=== PATIENT | male | born 1960 | race Caucasian/White ===

== ENCOUNTER 2023-10-04 03:48 | Emergency (ER) | payer OTHER, SELFPAY ==
[2023-10-04 03:53] VITALS: BP 200/117
[2023-10-04 04:21] LABS: % Basophils 0.7 % (0-2); % Eosinophils 3.5 % (0-6); % Immature Granulocytes 0.6 % (0-0.5); % Lymphocytes 22.1 % (20.5-51.1); % Monocytes 10.3 % (1.7-9.3); % Neutrophils 62.8 % (42.2-75.2); Absolute Basophils 0.1 10^3/uL (0-0.2); Absolute Eosinophils 0.4 10^3/uL (0-0.7); Absolute Immature Granulocytes 0.1 10^3/uL (0-0.05); Absolute Lymphocytes 2.8 10^3/uL (1.2-3.4); Absolute Monocytes 1.3 10^3/uL (0.1-0.6); Absolute Neutrophils 7.9 10^3/uL (1.4-6.5); Hematocrit 45.5 % (39.0-52.0); Hemoglobin 16.7 g/dL (13.0-18.0); Mean Corp Hgb Conc. 36.7 g/dL (33.0-37.0); Mean Corpuscular Hgb 35.2 pg (27.0-31.0); Mean Corpuscular Volume 95.8 fL (80.0-94.0); Mean Platelet Volume 8.1 fL (7.4-10.4); Nucleated Red Blood Cells % 0 % (-); Platelet Count 396 10^3/uL (130-400); Red Blood Cell Count 4.75 10^6/uL (4.70-6.10); Red Cell Dist. Width 12.7 % (11.5-14.5); White Blood Cell Count 12.6 10^3/uL (4.8-10.8)
[2023-10-04 04:29] LABS: ALT (SGPT) 19 U/L (0-50); AST (SGOT) 27 U/L (17-59); Albumin 4.5 g/dl (3.5-5.0); Alkaline Phosphatase 98 U/L (38-126); Blood Urea Nitrogen 15 mg/dl (9-20); Calcium 9.9 mg/dl (8.4-10.2); Carbon Dioxide 29 mmol/L (22-30); Chloride 101 mmol/L (98-107); Glucose 119 mg/dl (70-99); Potassium 4.5 mmol/L (3.5-5.1); Sodium 139 mmol/L (135-145); Total Bilirubin 0.8 mg/dl (0.2-1.3); Total Protein 7.6 g/dl (6.3-8.2); eGFR > 60.00
[2023-10-04 04:40] LABS: Troponin I < 0.012 ng/ml
[2023-10-04 05:26] VITALS: BMI 24.2
[2023-10-04 05:30] VITALS: BP 159/81
[2023-10-04 05:32] VITALS: BP 159/81
[2023-10-04 06:00] VITALS: BP 173/116
--- NOTE | 2023-10-04 06:29 | ED.GENMED ---
History of Present Illness
General
Chief Complaint: Chest Pain
Source: patient
Exam Limitations: none
Time Seen by Provider: 10/04/23 05:35
Nursing documentation reviewed up to this point in time: agreed with
Travel History
Have you had any contact with someone who has COVID-19?: No
Do you have any symptoms of coronavirus? Fever > 100 degrees, chills, cough, shortness of breath, sore throat, loss of taste or smell, muscle aches, or headache?: No
History of Present Illness
History of Present Illness:
63-year-old male with no reported past medical history presents to the emergency room for evaluation of left-sided chest wall pain/rib pain. Patient reports he was working on a stepladder in the bathroom 2 days ago and fell to the left side and
struck his left ribs. He says he did not have any head trauma or any other injuries. He says that over the past 2 days since the fall he has had some soreness in the left ribs. Last night he says he rolled over in bed and woke up around 1 AM with
sharp pain in the left chest that was radiating towards the sternum. He called EMS to bring to the hospital for assessment. He was given aspirin and nitroglycerin from EMS with no change in his symptoms. He has not had any associated symptoms
such as shortness of breath, nausea, vomiting, diaphoresis. He does report the pain is slightly worse with breathing. He denies any abdominal pain. Denies any headache, neck pain, back pain. He denies any pain in his extremities. He denies any
known cardiac history and says that he takes no medications--denies being on any blood thinners.
Review of Systems
Review of Systems
All Other Systems: ROS reviewed and negative except as documented in HPI and ROS
Constitutional: Denies fever or chills
Respiratory: Denies cough or trouble breathing
Cardiac: Reports chest pain; Denies diaphoresis or palpitations
ABD/GI: Denies abdominal pain, nausea or vomiting
: Denies flank pain
Musculoskeletal: Denies neck pain or back pain
Neurological: Denies dizzy, headache, weakness or numbness
Phy Exam
Physical Exam
Physical Exam:
General: Awake, alert, oriented x3; no acute distress
Head: Normocephalic, atraumatic
Eyes: Conjunctiva normal, sclera anicteric
Throat: Airway intact, handling secretions
Neck: Trachea midline, no tenderness in cervical spine
Back: No signs of trauma to the back or flank and no tenderness in the thoracic or lumbar spine
Lungs: Clear to auscultation bilaterally, no wheezing, rales, rhonchi
Heart: Regular rate and rhythm, no murmurs, gallops, or rubs; mild tenderness along left anterior lateral ribs but no crepitus or ecchymosis noted
Abd: Soft, non distended, nontender
Neuro: Cranial nerves grossly intact, speech fluid
Skin: no rash
Extremities: Atraumatic, no edema in extremities, equal pulses in all extremities
Scores
Heart Failure Risk
Heart Failure Risk Score: Not Applicable
Heart Score for Chest Pain Patients
STEMI patient?: No
History: Slightly or Non-Suspicious
ECG: Normal
Age: </= 45 years
Risk Factors: No Risk Factors
Troponin: </= Normal Limit
Heart Score for Chest Pain Patients: 0
Heart Score Risk: 2.5% MACE over next 6 weeks
Withdrawal Assessment of Alcohol
Withdrawal Assessment Completed?: Not applicable
Course
Orders/Labs/Results
Orders:
Orders
10/04/23 03:49
Electrocardiogram (*1) Urgent
Reason for Study: Chest Pain
EKG- Treatment ONCE
10/04/23 04:03
Ribs, Left 3 View W/PA Chest CR [CR Ribs-left 3 Vw W/pa Chest] Urgent
Comment:
Reason For Exam: injury and pain
10/04/23 04:04
CMP [Comprehensive Metabolic Panel] Urgent
Complete Blood Count/With Diff Urgent
Troponin I Urgent
10/04/23 05:44
CT Chest W/o Iv Contrast Urgent
Comment:
Reason For Exam: left rib pain s/p fall off ladder
10/04/23 06:29
Ketorolac [Toradol] 15 mg IV NOW STA
10/04/23 07:12
Troponin I Urgent
Abnormal Lab Results
10/04/23
04:04
WBC 12.6 H 10^3/uL
(4.8-10.8)
MCV 95.8 H fL
(80.0-94.0)
MCH 35.2 H pg
(27.0-31.0)
Abs Immat Gran (auto) 0.1 H 10^3/uL
(0-0.05)
Absolute Neuts (auto) 7.9 H 10^3/uL
(1.4-6.5)
Absolute Monos (auto) 1.3 H 10^3/uL
(0.1-0.6)
Immature Gran % 0.6 H %
(0-0.5)
Monocytes % 10.3 H %
(1.7-9.3)
Glucose 119 H mg/dl
(70-99)
10/04/23 04:04
10/04/23 04:04
Vital Signs
Initial and Last Documented VS:
Initial Vital Signs
Temp Pulse Resp BP Pulse Ox
36.6 C 94 22 200/117 96
10/04/23 03:53 10/04/23 03:53 10/04/23 03:53 10/04/23 03:53 10/04/23 03:53
Last Documented Vital Signs
Temp Pulse Resp BP Pulse Ox
36.6 C 82 20 159/81 93
10/04/23 03:53 10/04/23 05:30 10/04/23 05:30 10/04/23 05:30 10/04/23 05:30
MDM/Problems Addressed
Differential Diagnosis Includes:
Rib fracture, costochondritis, bruised ribs, pneumothorax/hemothorax; much less likely acute coronary syndrome, PE or other emergent pathology based on full clinical picture
MDM/Problems Addressed:
63-year-old male presents for evaluation of left-sided chest wall pain since a fall 2 days ago�pain became somewhat more sharp overnight. Arrived hypertensive but blood pressure improved on my assessment. Vital signs otherwise within normal
limits. Physical exam as above. EKG shows no acute ischemia. He had IV placed in triage and labs were sent off including CBC which shows a marked leukocytosis to 12.6, CMP which showed no acute abnormalities. He had a troponin sent which was
negative x 1�will send a repeat although low clinical suspicion for acute coronary syndrome. He had an x-ray of the ribs/chest which was reviewed by me and shows no clear fracture, no pneumothorax or hemothorax. Given his degree of tenderness will
check CT to rule out occult rib fracture. Will treat pain with Toradol. Reassess after the above.
CT chest shows no clear rib fracture or other acute pathology. On clinical reassessment patient reports that his pain improved with Toradol. Vital signs reassuring. Repeat troponin negative. Suspect likely bruised ribs or costochondritis related
to his fall. I think he is stable for discharge at this point in time. Spoke to him about follow-up plan with his primary doctor for reassessment he will take NSAIDs as needed for pain. He feels comfortable with this plan. Spoke about return
precautions all questions answered.
Acute Exacerbation and/or Progression of Chronic Illness:
Acutely hypertensive improved without intervention continue to monitor but no additional antihypertensive treatment indicated at present
Acute Exacerbation and/or Progression of Chronic Illness: HTN
*Radiology
Radiology exam reviewed: preliminary read by ED provider (X-ray of the ribs reviewed by me no pneumothorax or hemothorax, no rib fractures) and radiology read reviewed
*Pulse Oximetry
Patient hypoxic: no
*EKG
Interpreted by ED Provider?: Yes
Heart Rate: 90
Rate: normal
Rhythm: sinus
[place]: normal axis
Interval: normal interval
QRS Pattern: normal QRS
Ischemia: no ischemia
*Critical Care Note
Total Time (30-74mins, 75-104mins- exclusive of procedures): Not Applicable
Data Reviewed
Source: patient and ambulance crew
ED Attending Note
-
Portions of this chart may have been created with voice recognition software.� Occasional wrong word or��sound alike� substitutions may have occurred due to the inherent limitations of voice recognition software.
Discharge Plan
Departure
Patient with high blood pressure during this ER visit?: Yes
Discharge Problem:
Left-sided chest wall pain
Instructions: Costochondritis (DC), Rib Fracture or Bruised Rib ED, Chest Pain PCP Follow Up
Prescriptions:
No Action
No Current Medications
0
Referrals:
NONE,* [Family Provider] -
Activity Restrictions/Additional Instructions:
Thank you for visiting the Emergency Department at [facility].
1. Please schedule a follow up appointment as directed. Call first thing tomorrow morning to make an appointment.
2. If indicated, please take your medications as instructed and indicated on discharge paperwork.
3. If any of your symptoms do not improve, or persist, or become more severe within 6-12 hours, please return to the emergency department for further care.
4. Please return to the emergency department if you develop a headache, neck pain/stiffness, fever greater than 100.4F, chest pain, shortness of breath, persistent nausea, vomiting, slurred speech, difficulty walking, numbness/tingling, weakness,
signs of infection or any other symptoms that are worrisome to you.
Please call [phone] if you have any questions.
Interventions
Interventions:
*Risk Screen - Suicide Last Done: 10/04/23 03:53
*General Assessment Last Done: 10/04/23 05:30
*Neglect/Abuse Screening Last Done: 10/04/23 05:30
*ED COVID-19 Vaccine History Last Done: 10/04/23 05:30
ED- Cardiac Assessment Last Done: 10/04/23 05:30
ED-Musculoskeletal Assessment Last Done: 10/04/23 05:30
ED- Neurological Assessment Last Done: 10/04/23 05:30
ED- Pulmonary Assessment Last Done: 10/04/23 05:30
[2023-10-04] MEDS: TORADOL 15 MG IV (07:12)
[2023-10-04 07:15] VITALS: BP 178/97
[2023-10-04 08:00] VITALS: BP 162/89
[2023-10-04 08:08] LABS: Troponin I < 0.012 ng/ml
== END 2023-10-04 08:44 | disposition home or self-care (01) ==
LOC: EMR 03:48
PROVIDERS: Emergency Medicine; EMERGENCY PHYSICIAN Emergency Medicine
DX: R07.89 Other chest pain (principal)
CPT/HCPCS: 99284; 96374; 71101; 71250; 80053; 84484; 85025; 93005

== ENCOUNTER 2024-10-16 12:14 | Emergency (ER) | payer SELFPAY ==
[2024-10-16 12:22] VITALS: BP 174/93
--- NOTE | 2024-10-16 13:11 | ED.GENMED ---
History of Present Illness
General
Chief Complaint: Male Genito-Urinary Symptoms
Source: patient
Exam Limitations: none
Time Seen by Provider: 10/16/24 12:56
Nursing documentation reviewed up to this point in time: agreed with
History of Present Illness
History of Present Illness:
64-year-old male right groin swelling with pain 6 days no fever no nausea vomiting dysuria frequency similar episode 20 years ago on the left treated with antibiotics, he is a drinker and a smoker, no chronic medical condition is not known to be
diabetic
Past History
Past History
ED Past Medical History: None
ED Past Surgical History: None
Social History
Alcohol: Daily
Drug: None
Employment: Not employed
Review of Systems
Review of Systems
All Other Systems: Not applicable
Constitutional: Denies fever or fatigue
Cardiac: Reports no symptoms
ABD/GI: Reports no symptoms; Denies abdominal pain
: Reports other (Swelling of the right testicle)
Phy Exam
Physical Exam
Physical Exam:
Physical Exam
General: no apparent distress, not acutely ill
Neck: No jaundice
Heart: s1/s2 regular rate and rhythm, no murmur. equal radial pulses.
Lungs: no acute respiratory distress. clear bilaterally
Abdomen: Soft nontender abdomen right groin golf ball sized tenderness in the right lower lateral portion of the scrotum
Neuro: alert and oriented. no focal neurological deficits
Skin: no rash
Psychiatric: well kept. interactive and cooperative
Extremities: no edema.
Course
Orders/Labs/Results
Orders:
Orders
10/16/24 13:07
Scrotum US [US Scrotum] Urgent
Comment:
Reason For Exam: mass
10/16/24 13:08
Ibuprofen [Motrin] 600 mg PO NOW STA
10/16/24 13:23
Complete Blood Count/With Diff Urgent
10/16/24 15:35
CT Abd/pelvis W Iv Cont Urgent
Comment:
Reason For Exam: scrotal mass
10/16/24 15:41
Beta HCG Quantitative Urgent
Is this a screen?: No
Comprehensive Metabolic Panel Urgent
LDH Urgent
Abnormal Lab Results
10/16/24 10/16/24
13:23 13:40
WBC 13.1 H 10^3/uL
(4.8-10.8)
RBC 4.49 L 10^6/uL
(4.70-6.10)
MCV 101.3 H fL
(80.0-94.0)
MCH 37.4 H pg
(27.0-31.0)
Plt Count 435 H 10^3/uL
(130-400)
Abs Immat Gran (auto) 0.1 H 10^3/uL
(0-0.05)
Absolute Neuts (auto) 7.9 H 10^3/uL
(1.4-6.5)
Absolute Monos (auto) 1.3 H 10^3/uL
(0.1-0.6)
Immature Gran % 0.6 H %
(0-0.5)
Monocytes % 9.9 H %
(1.7-9.3)
POC Glucose 105 H mg/dl
(70-99)
10/16/24 13:23
10/16/24 15:41
Vital Signs
Initial and Last Documented VS:
Initial Vital Signs
Temp Pulse Resp BP Pulse Ox
99 F 87 20 174/93 97
10/16/24 12:22 10/16/24 12:22 10/16/24 12:22 10/16/24 12:22 10/16/24 12:22
Last Documented Vital Signs
Temp Pulse Resp BP Pulse Ox
98.0 F 77 18 142/75 100
10/16/24 17:27 10/16/24 17:27 10/16/24 17:27 10/16/24 17:27 10/16/24 17:27
MDM/Problems Addressed
Differential Diagnosis Includes:
Scrotal abscess, scrotal malignancy, epididymitis orchitis doubt hernia by history and physical
MDM/Problems Addressed:
Groin swelling
*Critical Care Note
Total Time (30-74mins, 75-104mins- exclusive of procedures): Not Applicable
Update Note
Update Note:
Update ultrasound report reviewed, reviewed with on-call urology outpatient follow-up arranged in the meantime we will check tumor markers and CT scan patient updated
ED Attending Note
-
Portions of this chart may have been created with voice recognition software.� Occasional wrong word or��sound alike� substitutions may have occurred due to the inherent limitations of voice recognition software.
Discharge Plan
Departure
Patient Disposition: Home (Routine Discharge)
Date of Disposition: 10/16/24
Time of Disposition: 17:09
Patient with high blood pressure during this ER visit?: No
Condition: Good
Discharge Problem:
Mass, scrotum
Prescriptions:
New
ibuprofen 600 mg tablet
600 mg PO Q6H PRN (Reason: Pain) Qty: 30 0RF
Referrals:
Jose Elias Enriquez MD [Active] - Follow up in 5-7 days
NONE,* [Family Provider] -
Activity Restrictions/Additional Instructions:
Call Dr Enriquez's office tell them you were seen in the ER and the ER doctor talked to Dr Enriquez
Interventions
Interventions:
*Risk Screen - Suicide Last Done: 10/16/24 12:22
*General Assessment Last Done: 10/16/24 12:22
*Neglect/Abuse Screening Last Done: 10/16/24 12:22
ED- Fall Risk Assessment Last Done: 10/16/24 17:27
*ED COVID-19 Vaccine History Last Done: 10/16/24 12:57
*Nursing Disposition Last Done: 10/16/24 17:27
ED-Male Genitourinary Assessment Last Done: 10/16/24 12:57
Discharge Date and Time
Discharge Date/Time: 10/16/24 17:28
Print Language: STATELESS
[2024-10-16] MEDS: MOTRIN 600 MG PO (13:23)
[2024-10-16 13:42] LABS: Glucose - Point of Care 105 mg/dl (70-99)
[2024-10-16 13:57] LABS: % Eosinophils 2.4 % (0-6); % Immature Granulocytes 0.6 % (0-0.5); % Monocytes 9.9 % (1.7-9.3); % Neutrophils 60.1 % (42.2-75.2); Absolute Basophils 0.1 10^3/uL (0-0.2); Absolute Eosinophils 0.3 10^3/uL (0-0.7); Absolute Immature Granulocytes 0.1 10^3/uL (0-0.05); Absolute Lymphocytes 3.4 10^3/uL (1.2-3.4); Absolute Monocytes 1.3 10^3/uL (0.1-0.6); Absolute Neutrophils 7.9 10^3/uL (1.4-6.5); Hematocrit 45.5 % (39.0-52.0); Hemoglobin 16.8 g/dL (13.0-18.0); Mean Corp Hgb Conc. 36.9 g/dL (33.0-37.0); Mean Corpuscular Hgb 37.4 pg (27.0-31.0); Mean Corpuscular Volume 101.3 fL (80.0-94.0); Nucleated Red Blood Cells % 0 % (-); Red Blood Cell Count 4.49 10^6/uL (4.70-6.10); Red Cell Dist. Width 13.8 % (11.5-14.5); White Blood Cell Count 13.1 10^3/uL (4.8-10.8)
[2024-10-16 14:31] LABS: Mean Platelet Volume 9.1 fL (7.4-10.4); Platelet Count 435 10^3/uL (130-400)
[2024-10-16 15:49] VITALS: BP 166/74
[2024-10-16 16:06] LABS: ALT (SGPT) 13 U/L (0-50); AST (SGOT) 17 U/L (17-59); Albumin 3.8 g/dl (3.5-5.0); Alkaline Phosphatase 89 U/L (38-126); Blood Urea Nitrogen 20 mg/dl (9-20); Calcium 9.4 mg/dl (8.4-10.2); Carbon Dioxide 30 mmol/L (22-30); Glucose 99 mg/dl (70-99); LDH 163 U/L (120-246); Total Bilirubin 0.6 mg/dl (0.2-1.3); Total Protein 6.6 g/dl (6.3-8.2); eGFR > 60.00
[2024-10-16 16:19] LABS: Beta HCG Quantitative < 2.39 mIU/ml; Chloride 102 mmol/L (98-107); Potassium 4.6 mmol/L (3.5-5.1); Sodium 137 mmol/L (135-145)
[2024-10-16 17:27] VITALS: BP 142/75
[2024-10-18 11:36] LABS: AFP Male/Tumor Marker 3 ng/mL (0-9)
== END 2024-10-16 17:28 | disposition home or self-care (01) ==
LOC: EMR 12:14
PROVIDERS: EMERGENCY PHYSICIAN Emergency Medicine
DX: N50.89 Other specified disorders of the male genital organs (principal)
CPT/HCPCS: 99285; 74177; 76870; 80053; 82105; 82962; 83615; 84702; 85025; 93976; Q9967

== ENCOUNTER → 2024-12-27 09:47 | Outpatient (REF) | payer BC, SELFPAY ==
[2024-12-30 08:34] LABS: PSA Total 1.4 ng/mL (0.0-4.0)
== END ==
LOC: HWRAD 09:47
PROVIDERS: ATTENDING PHYSICIAN Surgery; FAMILY PHYSICIAN Family Medicine
DX: N50.9 Disorder of male genital organs, unspecified (principal); Z12.5 Encounter for screening for malignant neoplasm of prostate
CPT/HCPCS: 36415; 76870; 84153; 84154; 93976